=== PATIENT | male | born 1955 | race Caucasian/White ===

== ENCOUNTER 2022-11-18 14:00 | Observation (INO) ==
[2022-11-18] MEDS ORDERED: MoRPHine SULFATE 4 MG/ML 1 ML CARP\\VIAL IV STA (16:08)
[2022-11-18] MEDS ORDERED: SODIUM CHLORIDE 0.9% 1000ML 500 ML IV ONE (16:08)
--- NOTE | 2022-11-18 16:11 | Emergency Department Note ---
Impression & Plan Acute right flank pain ED Provider Note HISTORY OF PRESENT ILLNESS: Patient is a 67-year-old male presenting with right lower quadrant abdominal pain. Patient reports that he has been having progressively worsening pain over the last 4 days. He was evaluated 4 days ago after significant back pain and cough. He had a grossly unremarkable work-up at that time he reports that today he was getting in to a vehicle when he experienced sharp shooting pain in his right lower abdomen and back. Denies any numbness or tingling down his legs. Denies any saddle anesthesia. Denies any bowel or bladder incontinence. Denies any actual direct injury to the back. Locates the pain to the right flank and right lower quadrant. Denies any dysuria or hematuria. Denies any recent feve rs. He reports nausea secondary to the pain. Had 1 episode of vomiting prior to EMS arrival. On arrival to the ER, the patient is still complaining of significant pain in his right lower quadrant ROS: as above PHYSICAL EXAM: Constitutional: Patient appears in no acute distress. HENT: Head: Normocephalic and atraumatic. Eyes: EOMI, PERRL Mouth/Throat: Mucous membranes moist. Neck: Trachea midline. Neck supple. Cardiovascular: RRR, No murmurs, rubs or gallops. Intact distal pulses. Pulmonary/Chest: No respiratory distress. Breath sounds clear and equal bilaterally. No wheezes or rales. Abdominal: BS +. Abdomen soft, no rebound or guarding. RLQ TTP. Musculoskeletal: No edema, tenderness or deformity noted. Skin: Warm and dry. No rash, erythema, pallor or cyanosis Psychiatric: Appropriate mood and affect for situation. Neurological: Alert and keenly responsive. CN II-XII grossly intact, moving all extremities equally and fully. MDM: - Vitals signs showed hypertension. - History obtained via patient. Patient presents with right lower quadrant abdominal pain and right flank pain. Patient reports progressively worsening pain over the last 4 days. He states that his pain has become significantly worse today and he developed sharp shooting pain in his right lower abdomen and back. Denies any numbness or tingling down his legs. Denies any bowel or bladder incontinence. Denies any saddle anesthesia. He had 1 episode of vomiting earlier today. Denies any fevers. - Chronic conditions affecting care: HTN; HLD; prostate cancer - Differential diagnoses include, but are not limited to: Appendicitis; ureteral stone; aortic dissection; UTI; musculoskeletal pain - Order placed for continuous cardiac monitoring. At this time, monitor showed rate of 62 bpm with normal sinus rhythm, per my interpretation. - External medical records reviewed. ED note from 4 days ago was reviewed. - Laboratory workup interpreted by myself showed normal WBC; stable electrolytes - UA negative for infection. - Given patient's uncontrollable pain on arrival to the ER, CT abdomen pelvis with IV contrast was obtained. CT was unremarkable for any acute pathology - Patient given 1L NS and 4 mg IV morphine in ER. On reassessment, he reports his pain is still present, but slightly improved. - Discussed results with the patient. He is likely having muscle spasms. Recom mended alternating Tylenol and ibuprofen utilizing [id number] lidocaine patches and heating pad for topical relief of symptoms. Instructed on return precautions - Patient tolerated oral intake in the emergency department without vomiting and ambulated without any gait instability prior to discharge - Patient remained stable throughout the visit. Results were discussed with the patient and patient's family. They were given the opportunity to ask questions. Had lengthy discussion with patient about supportive care return precautions. No new prescriptions. No changes to medications. Patient to follow up with primary care physician for further evaluation and management. All questions answered. Patient agreeable plan. ASSESSMENT AND PLAN: Diagnosis: Right flank pain; right back pain Plan: Discharge Past Med/Surg History Medical History (Updated 11/18/22 @ 19:56 by Hermelinda Mace MD) Arthropathy of lumbar facet joint Degenerative disc disease, cervical Depression with anxiety Dyslipidemia Gastroesophageal reflux Hypertension Obstructive sleep apnea has a Cpap but doesn't use it Prostate cancer Surgical History (Updated 09/07/19 @ 10:15 by Melvi Tanner, JUSTA) History of colonoscopy every 3 years since his colon cancer last one was Feb 2019 per patient History of laparoscopic cholecystectomy 1974 History of laparotomy 2008-Coectomy by Tami for residual polyp but final path was negative wiht endoscopic polypectomy Family History (Updated 09/07/19 @ 09:49 by Melvi Tanner, RN) Mother , age 91 Heart disease Father , age 78 Heart disease Son No problems noted. Daughter No problems noted. Daughter Depression Social History (Updated 09/07/19 @ 09:53 by Melvi Tanner, RN) Smoking Status: Never smoker packs per day: 1; Cigarettes Per Day: usually just a pack every few day, poor historian cant remember; Second Hand Exposure: Yes; Do You Dip or Chew Tobacco: No; Hx Alcohol Use: No Hx Substance Use: No Preferred Language: Estonian Beliefs That Will Affect Care: None marital status: Current Living Situation: Family current occupational status: retired Feels Safe at Home: Yes caffeine: No Allergies Allergies Allergy/AdvReac Type Severity Reaction Status Date / Time propoxyphene AdvReac Intermediate NAUSEA AND Verified 11/15/22 16:19 VOMITING Home Meds Home Medications Medication Instructions Recorded Confirmed lisinopril 10 mg tablet 10 mg PO QAM 01/01/19 11/18/22 omega 3 350 mg-dha 235 mg-epa 90 1 cap PO HS 01/01/19 11/18/22 mg-fish oil 597 mg capsule,delay rel ([place]-3) sertraline 100 mg tablet 150 mg PO DAILY 01/01/19 11/18/22 simvastatin 20 mg tablet 20 mg PO HS 01/01/19 11/18/22 omeprazole 20 mg capsule,delayed 20 mg PO DAILY 09/07/20 11/18/22 release aspirin 81 mg chewable tablet 81 mg PO HS 11/15/22 11/18/22 Previous Rx's Medication Instructions Recorded azithromycin 250 mg tablet 250 mg PO DAILY 4 days #4 tabs 11/15/22 benzonatate 100 mg capsule 100 mg PO TID PRN cough #15 caps 11/15/22 oxycodone 5 mg tablet 5 mg PO Q8H PRN pain (scale score 11/15/22 7-10) #9 tabs Results & Data (ED) Vital Signs Vital Signs - 24 hr 11/18/22 15:50 11/18/22 14:14 11/18/22 16:22 Temperature 36.7 C Temperature Source Oral Pulse Rate 54 L 56 L Pulse Rate [Finger] 59 L Pulse Rhythm [Finger] Regular Pulse Strength [Finger] Respiratory Rate 20 20 20 Respiratory Effort / Characteristics Non-Labored Spontaneous Non-Labored Spontaneous Respiratory Depth Normal Normal Respiratory Pattern Regular Regular Blood Pressure 128/66 Blood Pressure [Right Arm] 148/87 H Blood Pressure Mean 86 Blood Pressure Mean [Right Arm] 107 Blood Pressure Position Semi-fowlers Blood Pressure Position [Right Arm] Semi-fowlers Pulse Oximetry 97 94 96 Oxygen Delivery Method Room Air Room Air Room Air Sepsis Recent Fever Within 48 Hours No Sepsis New/Unexplained Change in Mental Status N/A Sepsis Action Taken by Nursing No Action Required 11/18/22 16:23 11/18/22 19:44 Temperature Temperature Source Pulse Rate 55 L Pulse Rate [Finger] 62 Pulse Rhythm [Finger] Regular Pulse Strength [Finger] Normal Respiratory Rate 19 Respiratory Effort / Characteristics Non-Labored Spontaneous Respiratory Depth Normal Respiratory Pattern Regular Blood Pressure Blood Pressure [Right Arm] 134/74 Blood Pressure Mean Blood Pressure Mean [Right Arm] 94 Blood Pressure Position Blood Pressure Position [Right Arm] Lying Pulse Oximetry 94 Oxygen Delivery Method Room Air Sepsis Recent Fever Within 48 Hours Sepsis New/Unexplained Change in Mental Status Sepsis Action Taken by Nursing Laboratory Data 11/18/22 16:13 11/18/22 16:13 Lab Results 11/18/22 11/18/22 11/18/22 Range/Units 15:55 16:13 16:13 WBC 8.26 (4.8-10.8) K/ul RBC 5.30 (4.70-6.10) M/uL Hgb 14.8 (14.0-18.0) g/dl Hct 44.3 (42.0-52.0) % MCV 83.6 (80.0-100.0) fL MCH 27.9 (25.0-34.0) pg MCHC 33.4 (32.0-36.0) g/dL RDW Std Deviation 40.7 (36.4-46.3) fL RDW Coeff of Jean Paul 13.3 (11.5-14.5) % Plt Count 211 (130-400) K/uL MPV 10.7 (9.4-12.4) fL Immature Gran % (Auto) 0.6 % Neut % (Auto) 81.4 % Lymph % (Auto) 10.7 % [place] % (Auto) 6.7 % Eos % (Auto) 0.2 % Baso % (Auto) 0.4 % Neut # (Auto) 6.73 H (1.40-6.50) K/uL Lymph # (Auto) 0.88 L (1.2-3.4) K/uL [place] # (Auto) 0.55 (0.11-0.59) K/uL Eos # (Auto) 0.02 (0-0.50) K/uL Baso # (Auto) 0.03 (0-0.2) K/uL Immature Gran # (Auto) 0.05 (0.01-0.20) K/uL Sodium 137 (136-145) mmol/L Potassium 3.8 (3.5-5.1) mmol/L Chloride 104 (98-107) mmol/L Carbon Dioxide 25 (21-32) mmol/L Anion Gap 8 (3-11) BUN 21 (6-23) mg/dl Creatinine 0.99 (0.6-1.4) mg/dl Est Cr Clr Drug Dosing 68.0 ml/min Est GFR ( Amer) 89.7 ml/min Est GFR (Non-Af Amer) 77.4 ml/min BUN/Creatinine Ratio 21.2 H (10-20) Glucose 130 H (70-99(Fasting)) mg/dl Calcium 9.6 (8.6-10.3) mg/dl Total Bilirubin 0.7 (0.2-1.0) mg/dl AST 14 (13-39) U/L ALT 10 (7-52) U/L Alkaline Phosphatase 91 (34-104) U/L Total Protein 7.3 (6.0-8.3) gm/dl Albumin 4.2 (3.4-5.0) gm/dl Globulin 3.1 (2.5-4.0) gm/dl Albumin/Globulin Ratio 1.4 (0.9-2) Urine Color Yellow Urine Appearance Clear (Clear) Urine pH 5.0 (4.5-7.5) Ur Specific [place] 1.023 (1.000-1.030) Urine Protein Negative (Negative) Urine Glucose (UA) Negative (Negative) Urine Ketones 1+ H (Negative) Urine Blood Negative (Negative) Urine Nitrite Negative (Negative) Urine Bilirubin Negative (Negative) Urine Urobilinogen Negative (Negative) Ur Leukocyte Esterase Negative (Negative) Administered Medications Discontinued Medications Sodium Chloride (Nss 1000ml) 500 mls @ 999 mls/hr IV .Q31M ONE Stop: 11/18/22 16:38 Last Infusion: 11/18/22 16:53 Dose: 0 mls/hr Documented By: Admin: 11/18/22 16:19 Dose: 999 mls/hr Documented By: AB Ioversol (Optiray 320 100ml) 88 ml IV ONCE ONE Stop: 11/18/22 17:02 Last Admin: 11/18/22 17:02 Dose: 88 ml Documented By: BERNADINE Morphine Sulfate (Morphine Sulfate 4 Mg/Ml 1 Ml Carp\Vial) 4 mg IV NOW STA Stop: 11/18/22 16:09 Last Admin: 11/18/22 16:18 Dose: 4 mg Documented By: AB Imaging Data Radiologist's Impression: Abdomen/Pelvis CT 11/18/22 16:12 CT OF THE ABDOMEN AND PELVIS WITH CONTRAST CLINICAL HISTORY: Right lower quadrant abdominal pain. COMPARISON STUDY: CT of the abdomen and pelvis November 15, 2022. TECHNIQUE: Following IV administration of 88 mL of Optiray, axial images of the abdomen and pelvis were obtained from the lung bases to the proximal femurs. Images were reviewed in the axial, sagittal, and coronal planes. IV contrast was administered without complication. Automated exposure control was utilized for the study. A dose lowering technique was utilized adhering to the principles of ALARA. CT DOSE: 1010.58 mGy.cm FINDINGS: No pneumatosis, free air or portal venous gas is present. There is no biliary ductal dilatation status post cholecystectomy. Liver, spleen, adrenal glands, kidneys and pancreas are unremarkable. There are numerous subcentimeter renal lesions which are too small to characterize. No hydronephrosis is present. The appendix is normal. There is no evidence for a bowel obstruction. The caliber and wall thickness of small and large bowel are normal. Mild stranding within the pelvis, adjacent to the prostate and seminal vesicles is unchanged. No fluid collection is present. The no lymphadenopathy. No suspicious osseous lesions are present. No urinary calculi. IMPRESSION: 1. No acute process within the abdomen or pelvis. 2. Normal appendix. No bowel obstruction. No bowel wall thickening. ACT 112: Negative or not required by law. Electronically signed by: Nickolas Mcgee M.D. 11/18/2022 5:20 PM Discharge Plan Visit Data Chief Complaint: Back Injury/Pain ED Provider: Hermelinda Mace Discharge Problem: Acute right flank pain Patient Disposition: Home - Self-Care Discharge Instructions [place]/Other Patient Handouts: ED [facility] Back Pain Activity Restrictions/Additional Instructions: Your laboratory and imaging work-up was negative for any acute pathology. Recommend that you alternate Tylenol and ibuprofen and utilize lidocaine patches and heating pads for topical relief of symptoms. Please follow-up closely with your primary care provider. Return to the emergency department if you develop a fever, worsening pain, inability to tolerate oral intake, numbness or tingling down your legs, or any new or worsening symptoms Forms Stand Alone Forms: My [facility], Virtual Emergency Department, Important Visit Information Prescriptions Prescriptions: No Action omeprazole 20 mg capsule,delayed release(DR/EC) 20 mg PO DAILY sertraline 100 mg tablet 150 mg PO DAILY simvastatin 20 mg tablet 20 mg PO HS lisinopril 10 mg tablet 10 mg PO QAM [place]-3 350 mg-235 mg- 90 mg-597 mg Capsule,Delayed Release(Dr/Ec) 1 cap PO HS aspirin 81 mg Tablet,Chewable 81 mg PO HS azithromycin 250 mg tablet 250 mg PO DAILY 4 Days Qty: 4 0RF benzonatate 100 mg capsule 100 mg PO TID PRN (Reason: cough) Qty: 15 0RF oxycodone 5 mg tablet 5 mg PO Q8H PRN (Reason: pain (scale score 7-10)) Qty: 9 0RF Rx Instructions: May cause sedation/drowsiness Referrals Referrals: Darrick Velarde MD [Primary Care Provider] -
[2022-11-18 16:25] LABS: Basophils # (auto) 0.03 K/uL (0-0.2); Basophils % (auto) 0.4 %; Eosinophils # (auto) 0.02 K/uL (0-0.50); Eosinophils % (auto) 0.2 %; Hematocrit (blood only) 44.3 % (42.0-52.0); Hemoglobin 14.8 g/dl (14.0-18.0); Immature Granulocytes # (auto) 0.05 K/uL (0.01-0.20); Immature Granulocytes % (auto) 0.6 %; Lymphocytes # (auto) 0.88 K/uL (1.2-3.4); Lymphocytes % (auto) 10.7 %; Mean Corpuscular Hemoglobin 27.9 pg (25.0-34.0); Mean Corpuscular Hgb Conc 33.4 g/dL (32.0-36.0); Mean Corpuscular Volume 83.6 fL (80.0-100.0); Mean Platelet Volume 10.7 fL (9.4-12.4); Monocytes # (auto) 0.55 K/uL (0.11-0.59); Monocytes % (auto) 6.7 %; Neutrophils # (auto) 6.73 K/uL (1.40-6.50); Neutrophils % (auto) 81.4 %; Platelet Count 211 K/uL (130-400); RDW Coefficient of Variation 13.3 % (11.5-14.5); RDW Standard Deviation 40.7 fL (36.4-46.3); White Blood Count 8.26 K/ul (4.8-10.8)
[2022-11-18 16:46] LABS: Albumin Globulin Ratio 1.4 (0.9-2); Albumin Level 4.2 gm/dl (3.4-5.0); BUN Creatinine Ratio 21.2 (10-20); Bilirubin,Total 0.7 mg/dl (0.2-1.0); Calcium 9.6 mg/dl (8.6-10.3); Est GFR (African American) 89.7 ml/min; Est GFR (Non-African American) 77.4 ml/min; Globulin 3.1 gm/dl (2.5-4.0); Potassium 3.8 mmol/L (3.5-5.1); Total Protein 7.3 gm/dl (6.0-8.3)
[2022-11-18] MEDS ORDERED: OPTIRAY 320 100ml IV ONE (17:01)
[2022-11-18 17:12] LABS: Appearance Urine Clear (Clear); Bilirubin Urine Negative (Negative); Blood Urine Negative (Negative); Color Urine Yellow; Glucose Urine UA Negative (Negative); Ketones Urine 1+ (Negative); Leukocyte Esterase Urine Negative (Negative); Nitrite Urine Negative (Negative); Protein Urine Negative (Negative); Specific Gravity Urine 1.023 (1.000-1.030); Urobilinogen Urine Negative (Negative)
--- NOTE | 2022-11-18 17:22 | CT Scan Report ---
CT OF THE ABDOMEN AND PELVIS WITH CONTRAST CLINICAL HISTORY: Right lower quadrant abdominal pain. COMPARISON STUDY: CT of the abdomen and pelvis November 15, 2022. TECHNIQUE: Following IV administration of 88 mL of Optiray, axial images of the abdomen and pelvis we re obtained from the lung bases to the proximal femurs. Images were reviewed in the axial, sagittal, and coronal planes. IV contrast was administered without complication. Automated exposure control wa s utilized for the study. A dose lowering technique was utilized adhering to the principles of ALARA . CT DOSE: 1010.58 mGy.cm FINDINGS: No pneumatosis, free air or portal venous gas is present. There is no biliary ductal dilata tion status post cholecystectomy. Liver, spleen, adrenal glands, kidneys and pancreas are unremarkabl e. There are numerous subcentimeter renal lesions which are too small to characterize. No hydronephro sis is present. The appendix is normal. There is no evidence for a bowel obstruction. The caliber and wall thickness of small and large bowel are normal. Mild stranding within the pelvis, adjacent to th e prostate and seminal vesicles is unchanged. No fluid collection is present. The no lymphadenopathy. No suspicious osseous lesions are present. No urinary calculi. IMPRESSION: 1. No acute process within the abdomen or pelvis. 2. Normal appendix. No bowel obstruction. No bowel wall thickening. ACT 112: Negative or not required by law. Electronically signed by: Nickolas Mcgee M.D. 11/18/2022 5:20 PM
[2022-11-18] MEDS ORDERED: KETOROLAC 30 MG/ML VIAL IV ONE (20:14)
--- NOTE | 2022-11-19 02:10 | History and Physical Report ---
DATE OF ADMISSION: 11/19/2022. CHIEF COMPLAINT: Severe right-sided back pain. HISTORY OF PRESENT ILLNESS: A 67-year-old male with past medical history significant for hyperlipidemia, sleep apnea, hypertension, bifascicular block, GERD, history of prostate cancer, degenerative disk disease, depression with anxiety, history of carcinoma in situ of colon. Presents with severe right back and flank pain. The patient was here on 11/15/2022 with coughing and right back pain. At that time, workup was negative, was discharged on possible questionable bronchitis with azithromycin. On that day, on 11/15/2022, imaging, CT abdomen and pelvis was done without contrast to look for any kidney stone, it was unremarkable, but the patient states that his symptoms are not getting better. That is the reason he came here .Cough is little better and pain is shooting down and looks like he denied any saddle anesthesia, bowel or bladder incontinence. Locates the pain to the right flank and the hip region. Could not get up because of excruciating pain. That is the reason we were called for admission. Currently, resting comfortably and hemodynamically stable and lying down, his pain is okay. Denies any chest pain, no shortness of breath. Vera nausea because of pain. Denies any fevers. Cough is getting better, no shortness of breath, no headache, no blurred visions, no earache. Has some sore throat, but that got improved. Eating okay and no abdominal pain. Normal bowel and bladder movements. ALLERGIES: PROPOXYPHENE. PAST MEDICAL HISTORY: As mentioned above. PAST SURGICAL HISTORY: Biopsy of prostate, colonoscopy, flexible sigmoidoscopy, laparoscopic cholecystectomy, partial removal of colon. MEDICATIONS: The patient is on aspirin 81 mg p.o. at bedtime, Zithromax 250 mg p.o. daily, a couple more days left, Tessalon perle 100 mg p.o. t.i.d. p.r.n., lisinopril 10 mg p.o. a.m., fish oil 1 capsule daily, omeprazole 20 mg p.o. daily, oxycodone 5 mg p.o. q. 8 hours p.r.n., sertraline 150 mg p.o. daily, simvastatin 20 mg p.o. at bedtime. FAMILY HISTORY: Significant for father has [place], mother has hypertension and depression. SOCIAL HISTORY: Quit smoking in 1990, smoked half pack a day for 33 years. No alcohol, no drug use. REVIEW OF SYSTEMS: As per HPI. Rest of the review of systems is negative. PHYSICAL EXAMINATION: GENERAL: The patient is obese, not in acute distress. VITAL SIGNS: Temperature 36.7, pulse 63, respiratory rate 16, blood pressure 121/72, oxygen 94% on room air. HEENT: Pupils equal, round and reactive to light. Oral mucosa moist. NECK: No JVD, no neck masses. CARDIOVASCULAR: S1 and S2 heard. Regular rate and rhythm. No murmur, no gallop. RESPIRATORY SYSTEM: Normal AP diameter. No accessory muscle use. No wheezing or crackles. ABDOMEN: Soft, bowel sounds present, nontender, no distention. CENTRAL NERVOUS SYSTEM: Alert and oriented. Speech is clear. No facial droop. Obeys commands. MUSCULOSKELETAL: Tenderness in the right flank and hip region, the right posterior lower back and hip region. EXTREMITIES: No edema or erythema. LABORATORY DATA: WBC 8.2, hemoglobin 14.8, hematocrit 44.3, platelets 211. Sodium 137, potassium 3.8, chloride 104, bicarbonate 25, BUN 21, creatinine 0.9, serum glucose 130, calcium 9.6, total bilirubin 0.7, AST 14, ALT 10, alkaline phosphatase 91. Urinalysis negative. SARS-CoV-2 rapid test negative. IMAGING DATA: CT of abdomen and pelvis with contrast shows no acute process in the abdomen and pelvis, normal appendix, no bowel obstruction, no bowel wall thickening. ASSESSMENT AND PLAN: This is a 67-year-old male who presents with severe right flank pain. 1. Severe right flank and back pain: Tenderness on palpation of the right posterior hip region. Because of the pain, he is not able to get up and walk. He has recently had cough and bronchitis, which triggered this pain and it is not getting better. Will treat with pain control. Will give a dose of steroid. PT, OT. If not getting better, will consult pain management. 2. History of sleep apnea: CPAP at bedtime. 3. History of hypertension: Continue lisinopril. 4. Bronchitis: Will finish the course of azithromycin. 5. Hyperlipidemia: On statin. 6. Depression with anxiety: On Zoloft. 7. Gastroesophageal reflux disease: On omeprazole. 8. History of cancer determined by prostate biopsy, but seems the patient is not on any treatment, needs followup. 9. Deep venous thrombosis prophylaxis: Lovenox. DISPOSITION: Observe in medical floor. PT/OT prior to discharge. Social service to help with discharge planning. Job ID: [id number] [email or web address]
[2022-11-19] MEDS ORDERED: oxyCODONE HCL IR 5 MG TAB (IMMEDIATE RELEASE) PO PRN (02:36)
[2022-11-19] MEDS ORDERED: HYDROmorphone INJ 0.5 MG/0.5 ML SYR IV PRN (02:36)
[2022-11-19] MEDS ORDERED: DEXAMETHASONE SOD INJ 4 MG/ML VIAL IV STA (02:36)
[2022-11-19] MEDS ORDERED: BENZONATATE 100 MG CAPSULE PO PRN (02:36)
[2022-11-19] MEDS ORDERED: ACETAMINOPHEN 325 MG TAB PO PRN (02:36)
[2022-11-19 07:13] LABS: Basophils # (auto) 0.02 K/uL (0-0.2); Basophils % (auto) 0.3 %; Eosinophils # (auto) 0.02 K/uL (0-0.50); Eosinophils % (auto) 0.3 %; Hematocrit (blood only) 43.3 % (42.0-52.0); Hemoglobin 14.3 g/dl (14.0-18.0); Immature Granulocytes # (auto) 0.04 K/uL (0.01-0.20); Immature Granulocytes % (auto) 0.6 %; Lymphocytes # (auto) 0.63 K/uL (1.2-3.4); Lymphocytes % (auto) 9.6 %; Mean Corpuscular Hemoglobin 27.8 pg (25.0-34.0); Mean Corpuscular Volume 84.2 fL (80.0-100.0); Mean Platelet Volume 10.3 fL (9.4-12.4); Monocytes # (auto) 0.15 K/uL (0.11-0.59); Monocytes % (auto) 2.3 %; Neutrophils # (auto) 5.72 K/uL (1.40-6.50); Neutrophils % (auto) 86.9 %; Platelet Count 199 K/uL (130-400); RDW Coefficient of Variation 13.5 % (11.5-14.5); RDW Standard Deviation 41.8 fL (36.4-46.3); Red Blood Count 5.14 M/uL (4.70-6.10); White Blood Count 6.58 K/ul (4.8-10.8)
[2022-11-19 07:48] LABS: BUN Creatinine Ratio 26.1 (10-20); Calcium 9.2 mg/dl (8.6-10.3); Creatinine Clr Calc Pharmacy 73.2 ml/min; Est GFR (Non-African American) 84.6 ml/min; Magnesium 2.1 mg/dl (1.7-2.4); Potassium 4.4 mmol/L (3.5-5.1)
--- NOTE | 2022-11-19 10:52 | Magnetic Resonance Report ---
MR thoracic spine wo con CLINICAL HISTORY: persistent R flank pain TECHNIQUE: Multiplanar sequences through the thoracic spine were obtained, without intravenous contra st. Comparison: None available at the time of this dictation. FINDINGS: The alignment is anatomical. Degenerative changes are noted in the discs and vertebral bodies. The spinal canal and neural foramina are patent. The spinal ligaments are intact, without evidence of disruption or abnormal signal intensity. The spi nal cord is normal in signal intensity and there is no evidence of cord contusion. There is no eviden ce of an extradural, intradural, extramedullary or intramedullary lesion. Visualized soft tissues are normal. IMPRESSION: No evidence of cord compression, significant neuroforaminal narrowing or ligamentous injury. ACT 112: Negative or not required by law. Electronically signed by: Nikos Shanks M.D. 11/19/2022 10:50 AM
--- NOTE | 2022-11-19 11:06 | Magnetic Resonance Report ---
LUMBAR SPINE MRI HISTORY: persistent R lower back pain TECHNIQUE: Multiplanar multisequence MRI of the lumbar spine was performed without the use of contras t. COMPARISON: Abdomen and pelvis CT 11/18/2022. FINDINGS: For the purpose of the report the L5-S1 disc space will be located on axial image 25 of 27. There is 3 mm of anterolisthesis of L4 on L5. No acute fractures identified within the lumbar spine. The visualized sacrum is intact. Slightly heterogeneous marrow signal which is likely age-related. No suspicious osseous lesions identified. Mild right-sided paravertebral edema at the T12-L1 level whic h is likely due to the adjacent large osteophyte. Multiple additional osteophytes seen within the lum bar spine. Moderate to severe facet degenerative changes throughout the lumbar spine most pronounced at the L3-L4 and L4-5 levels. Moderate disc space narrowing at L4-L5. There is mild disc space narrow ing throughout the remaining lower thoracic and lumbar spine. The conus terminates at the L1 level. L1-L2: Broad-based posterior disc bulge with a small focal central disc protrusion measuring 2 mm. Th ere is also ligamentum flavum and facet hypertrophy resulting in mild central canal and mild bilatera l neural foraminal narrowing. L2-L3: Broad-based posterior disc bulge with significant ligamentum flavum and facet hypertrophy resu lting in moderate to severe central canal narrowing with the AP diameter measuring 7 mm. There is mil d to moderate bilateral neural foraminal narrowing. L3-L4: Broad-based posterior disc bulge with severe ligamentum and facet hypertrophy resulting in sev ere central canal narrowing with the AP diameter measuring 5.3 mm. There is also severe right and mod erate to severe left neural foraminal narrowing due to the disc bulge and facet hypertrophy. L4-L5: Broad-based posterior disc bulge with severe ligamentum and facet hypertrophy resulting in sev ere central canal narrowing with the AP diameter of 3 mm. There is also moderate to severe left and s evere right neural foraminal narrowing. L5-S1: Broad-based posterior disc bulge with a small central focal disc protrusion. This abuts the tr ansiting bilateral S1 nerve roots. However, no significant central canal narrowing. There is severe b ilateral neural foraminal narrowing with impingement of the exiting bilateral L5 nerve roots. IMPRESSION: 1. Advanced multilevel degenerative changes as described above most pronounced at the L3-L4 and L4-L5 levels demonstrating severe central canal narrowing. 2. No fractures identified. 3. Grade 1 anterolisthesis of L4 and L5. ACT 112: Negative or not required by law. Electronically signed by: Mark Haddad M.D. 11/19/2022 11:04 AM
--- NOTE | 2022-11-19 11:19 | Magnetic Resonance Report ---
MRI OF THE RIGHT HIP WITHOUT CONTRAST CLINICAL HISTORY: Persistent right hip pain. COMPARISON STUDY: CT of the abdomen and pelvis November 18, 2022. TECHNIQUE: Utilizing a 1.5 Puja magnet and dedicated coil, multiplanar, multiecho imaging of the rig ht hip was performed without intra-articular or intravenous contrast. FINDINGS: No marrow edema or marrow replacement is identified within the pelvis or hips. No right hip joint effusion is present. There is no evidence for avascular necrosis of the femoral heads. No sign ificant cartilage abnormality within the right hip is present. No labral tear is identified on nonart hrogram exam. There are moderate degenerative changes at the symphysis pubis. No suspicious osseous l esions are present. There is no pelvic lymphadenopathy. Note is made of mild increased signal within the distal right gluteus minimus and medius. There is also mild increased signal within the right ham string origin. There is subtle increased T2 signal within the pelvic floor musculature. No fluid ayla ection is present. IMPRESSION: 1. No fractures within the pelvis or hips. No suspicious marrow replacement. No evidence for avascula r necrosis of the femoral heads. 2. No significant internal derangement of the right hip on nonarthrogram exam. 3. Mild increased signal within the distal right gluteus medius and minimus and the proximal right ross mstring. The findings suggest tendinosis with mild partial-thickness tears. 4. Increased T2 signal within the pelvic floor musculature. This is likely treatment related. ACT 112: Negative or not required by law. Electronically signed by: Nickolas Mcgee M.D. 11/19/2022 11:17 AM
[2022-11-19] MEDS: ENOXAPARIN INJ 40 MG/0.4 ML SYR SQ SCH (11:52)
[2022-11-19] MEDS: PANTOprazole 40 MG TAB PO SCH (11:53)
[2022-11-19] MEDS: SERTRALINE HCL 50 MG TABLET PO SCH (11:53)
[2022-11-19] MEDS: AZITHROMYCIN 250 MG TAB PO SCH (11:53)
[2022-11-19] MEDS: lisinopril 10 MG TAB PO SCH (11:53)
--- NOTE | 2022-11-19 17:15 | Hospitalist Progress Note ---
Date of Service November 19, 2022 Assessment & Plan (1) Intractable back pain: Plan: ASSESSMENT AND PLAN: This is a 67-year-old male who presents with severe right flank pain. 1. Severe right flank and back pain: Thoracic MRI: Unrevealing Lumbar spine MRI: Severe spinal stenosis Right hip MRI:Mild increased signal within the distal right gluteus medius and minimus and the proximal right hamstring. The findings suggest tendinosis with mild partial-thickness tears. -- Start Zanaflex 2 mg p.o. 3 times daily, Lidoderm patch, Tylenol 1 g every 8 hours --Consult orthopedic spine, pain management --PT and OT evaluation 2. History of sleep apnea: CPAP at bedtime. 3. History of hypertension: Continue lisinopril. 4. Bronchitis: Will finish the course of azithromycin. 5. Hyperlipidemia: On statin. 6. Depression with anxiety: On Zoloft. 7. Gastroesophageal reflux disease: On omeprazole. 8. History of cancer determined by prostate biopsy, but seems the patient is not on any treatment, needs followup. 9. Deep venous thrombosis prophylaxis: Lovenox. DISPOSITION: Lives at home , PT and OT evaluation in progress Admission and Anticipated Discharge Date Admission Date: November 19, 2022 Subjective Follow-up persistent right lower back pain, etc. Seen resting in bed, not in distress States he still having right sided lower back pain Worse with movement, lifting left lower extremity Denies incontinence, weakness or numbness of the extremities No other symptoms Review of Systems Review of Systems: all noted and negative except for above Physical Exam Physical Exam: General- oriented x 3, not in distress, speaks in sentences with no effort or accessory muscle use Head- atraumatic Eyes- PERRL, EOMI, anicteric ENT- oropharynx clear Neck- supple, no JVD, no adenopathy, no thyromegaly; carotids +2/2, no bruits appreciated Lungs- clear to auscultation bilaterally, no rales/wheezes Heart- normal rate, regular rhythm; no murmur, no gallop, no rub appreciated Abdomen- normal bowel sounds, nondistended, soft, nontender, no masses or hepatosplenomegaly Extremities- no pretibial edema, no calf tenderness; peripheral pulses intact Back- (+) tenderness on the R lower back No erythema/warmth/tenderness Positive straight leg test Neuro- alert, oriented x 3; CN 2-12 grossly intact; motor 5/5 bilaterally; sensation 100% on all extremities; no other gross focal neurologic deficits Skin- warm & dry Results & Data Results & Data Vital Signs (Past 12 Hours) Vital Signs Temp Pulse Pulse Resp BP BP Pulse Ox 11/19/22 16:06 36.6 C 59 L 18 156/87 H 96 11/19/22 15:00 60 13 96 11/19/22 14:00 63 20 95 11/19/22 13:00 92 11/19/22 13:00 124/88 11/19/22 12:01 93 11/19/22 12:01 161/98 H 11/19/22 12:00 94 11/19/22 11:26 97 11/19/22 11:26 131/80 11/19/22 09:00 55 L 13 89 L 11/19/22 09:00 99/65 L 11/19/22 08:00 61 16 94 11/19/22 08:00 114/67 11/19/22 07:00 57 L 13 92 11/19/22 07:00 110/62 11/19/22 11:32 11/19/22 07:00 52 L 18 110/62 95 11/19/22 06:56 60 11/19/22 06:00 56 L 15 95/64 L 93 O2 Del Method 11/19/22 16:06 Room Air 11/19/22 15:00 11/19/22 14:00 11/19/22 13:00 11/19/22 13:00 11/19/22 12:01 11/19/22 12:01 11/19/22 12:00 11/19/22 11:26 11/19/22 11:26 11/19/22 09:00 11/19/22 09:00 11/19/22 08:00 11/19/22 08:00 11/19/22 07:00 11/19/22 07:00 11/19/22 11:32 Room Air 11/19/22 07:00 Room Air 11/19/22 06:56 11/19/22 06:00 Room Air all noted and reviewed including below
[2022-11-19] MEDS: tiZANidine HCL 4 MG TABLET PO SCH ×2 (17:58→20:21)
[2022-11-19] MEDS: ACETAMINOPHEN 500 MG TAB PO SCH (18:00)
[2022-11-19] MEDS: ASPIRIN 81 MG ECTAB PO SCH (20:20)
[2022-11-19] MEDS: SIMVASTATIN 20 MG TAB PO SCH (20:20)
[2022-11-20] MEDS: ACETAMINOPHEN 500 MG TAB PO SCH ×3 (01:31→18:04)
[2022-11-20] MEDS: PANTOprazole 40 MG TAB PO SCH (08:27)
[2022-11-20] MEDS: lisinopril 10 MG TAB PO SCH (08:27)
[2022-11-20] MEDS: AZITHROMYCIN 250 MG TAB PO SCH (08:27)
[2022-11-20] MEDS: SERTRALINE HCL 50 MG TABLET PO SCH (08:27)
[2022-11-20] MEDS: LIDOCAINE 5% 1 PATCH TD SCH (08:28)
[2022-11-20] MEDS: tiZANidine HCL 4 MG TABLET PO SCH (08:28)
--- NOTE | 2022-11-20 08:51 | Pain Management Consultation ---
Date of Consultation November 20, 2022 Assessment & Plan (1) Intractable back pain: (2) Acute right flank pain: (3) Spinal stenosis of lumbar region: (4) History of prostate cancer: Plan Patient has not been taking the PRN oxycodone or Dilaudid for the past couple of days. It seems that since he was in the ER, he has only been receiving Tylenol. Patient did seem confused about the medications as far as needing to ask for them when he is in pain. He denies any cauda equina syndrome red flag symptoms of bilateral sciatica pain and altered sensation in the legs, bowel/bladder d ysfunction, saddle anesthesia, and sexual problems. 1. Patient's symptoms do not include a radicular component, low lumbar/lumbosacral tenderness, and he has relatively good strength to the lower extremities. He actually seems to demonstrate some mild weakness on the left lower extremity compared to the right. His presentation does not seem to be consistent with what would be seen with an acute issue at the L4-5 level, especially with there being a 3 mm the diameter of the canal. However, it is certainly possible that he is experiencing significant waxing and waning pain from a muscle spasm related to the underlying nerve impingement. * With the above noted, the patient's pain is currently localized to the right flank region at the base of the ribs, which corresponds with the lower tho racic levels. This would not be consistent with expected lumbar level pain/symptoms. 2. We did discuss his options, to include a lumbar L4-5 interlaminar DEONTE, which would be performed as an outpatient at the pain clinic office. * However, this option would be pending the orthopedic spine surgeon consult, and whether any surgical intervention was recommended. * After further discussion with Dr. Joseph, and the fact that the patient's symptoms and location of pain do not correspond to a lumbar issue, we would recommend more conservative treatment and avoidance of any lumbar injection for the time being. 3. With the patient's pain pattern being inconsistent with what is seen on the MRI imaging, and him utilizing only relatively lower strength pain medications for the past couple of days, it is felt best to go the route of the most conservative path. * This would include an oral steroid taper. * Recommend 18-day methylprednisolone taper, which has been ordered. 4. Discontinue Zanaflex and start baclofen, which has also been ordered. 5. Recommend mobilization with PT/OT. 6. Upon further review of the MRI imaging, it is noted on the thoracic MRI that the patient has multiple bulging/herniated low thoracic level and thoracolumbar anterior disc osteophyte complexes of a rather large appearing size. * These appear at T9-10, T11-12, and T12-L1. * Though this can be a common appearance on a thoracic MRI, research has suggested that possibly there is a component of sympathetic chain nerve compression involvement, wherein the lesser vs. least splanchnic nerve is being compressed and causing referred type pain in the kidney area due to renal plexus involvement. 7. Differentially, the patient's symptoms may represent a thoracic discogenic pain syndrome, but less likely. 8. Plan from the pain management team would be to continue to completion the oral steroid taper, and follow-up as outpatient next week or the week after in the pain clinic for further evaluation. * In the meantime, we will have discussion on the potential for a diagnostic lesser vs. least splanchnic nerve block vs. alternative, if this ends up being necessary due to persistent severe pain. History of Present Illness Reason for Consultation: right low back/flank pain Attending Physician: Peter Ortega MD History of Present Illness Patient is a pleasant 67-year-old male that the pain management team has been consulted on for acute right sided flank and thoracic/low back pain. Patient has a history of hypertension and previous prostate cancer. He was having a severe cough and nasal drainage at that time, as well as a sore throat. It seems that the severe coughing caused him to feel a sudden sharp pulling sensation in his right mid to low back and right flank area. That pain persisted, and was worse with movements, so he contacted EMS, and they administered a dose of Toradol without any improvement. He had presented to the ER via EMS on 11/15/2022. He was noted to have some right posterior flank pain in the ER, but this was not provokable by palpation. It was, however, provoked with certain movements he made. CT of the abdomen/pelvis demonstrated no acute intra-abdominal or pelvic abnormality and was without evidence of kidney stone. There was noted to be some prostate changes, likely related to treatment interventions there. Otherwise, his work-up was relatively unremarkable at that time. Morphine did help his back pain, in addition to a lidocaine patch. It was felt he was having musculoskeletal pains from coughing, so he was prescribed a course of antitussive and antibiotic. He was also sent in a prescription of oxycodone, and the patient was discharged home. Patient returns to the ER on Friday, 11/18, with right lower quadrant abdominal pain. He was reporting pain at that time that worsened over about a period of 4 days. He was helping a friend collect and broderick some junk materials since he is retired, and he really was not lifting anything at all, nor had he been since his previous hospital discharge, but then he was getting into a vehicle and he experienced a sharp and shooting pain in his right lower abdomen and back. He continued to deny any numbness and tingling in his legs. He denied any symptoms of bowel/bladder incontinence and saddle anesthesia. He denied any direct injury to the back or flank region. Patient localizes the pain at that time to his right flank and right lower abdominal quadrant. He was having no trouble with dysuria or hematuria. He did experience some nausea secondary to the pain, which did cause him to have an episode of emesis prior to EMS bringing him to the ER that day. Work-up while in the ER on that day was also relatively benign, and CT was again unremarkable for any acute pathology. He was given IV morphine, and upon reassessment he continues to report pain still present, but slightly improved. It was felt he was having muscle spasms, and it was recommended he alternate Tylenol and ibuprofen, as well as utilize lidocaine patches and heating pad for topical relief. He was able to ambulate in the ER without any gait instability. The plan was to discharge the patient, however, upon attempting to get into a wheelchair, he was in excruciating pain and did not feel comfortable going back home. He requested admission to the hospital, and so this was carried out so that he could be observed for pain management. Since the patient was in the ER on Friday and received an IV dose of morphine, he has not had a narcotic pain medicine administrations since that time. He says that they have been giving him Tylenol, and this does seem to help with his pain. He has also been receiving Zanaflex muscle relaxer and a Lidoderm patch. He has been trying to shift around to different positions to find a spot of comfort, and he has been laying on his left side quite regularly. Thoracic, lumbar, and right hip MRIs have been performed. The thoracic spine MRI is unremarkable, and the right hip MRI demonstrates some distal right gluteus medius and minimus and proximal hamstring increased signal, likely suggesting tendinosis and mild partial-thickness tears. The lumbar spine MRI demonstrated multilevel degenerative disc disease with bulging present diffusely. There was a severe spinal stenosis present, with the worst level being L4-5, with an AP diameter of 3 mm. Pain Assessment Full Body Front + Back: 1. Allergies Allergy/AdvReac Type Severity Reaction Status Date / Time propoxyphene AdvReac Intermediate NAUSEA AND Verified 11/15/22 16:19 VOMITING Home Medications Medication Instructions Recorded Confirmed Type lisinopril 10 mg tablet 10 mg PO QAM 01/01/19 11/18/22 History omega 3 350 mg-dha 235 mg-epa 90 1 cap PO HS 01/01/19 11/18/22 History mg-fish oil 597 mg capsule,delay rel (Chappell-3) sertraline 100 mg tablet 150 mg PO DAILY 01/01/19 11/18/22 History simvastatin 20 mg tablet 20 mg PO HS 01/01/19 11/18/22 History omeprazole 20 mg capsule,delayed 20 mg PO DAILY 09/07/20 11/18/22 History release aspirin 81 mg chewable tablet 81 mg PO HS 11/15/22 11/18/22 History azithromycin 250 mg tablet 250 mg PO DAILY 4 days #4 tabs 11/15/22 11/18/22 Rx benzonatate 100 mg capsule 100 mg PO TID PRN cough #15 caps 11/15/22 11/18/22 Rx oxycodone 5 mg tablet 5 mg PO Q8H PRN pain (scale score 11/15/22 11/18/22 Rx 7-10) #9 tabs Pain History Chief Complaint Chief Complaint: severe right side and back pain Patient History Medical History Arthropathy of lumbar facet joint Degenerative disc disease, cervical Depression with anxiety Dyslipidemia Gastroesophageal reflux History of prostate cancer Hypertension Obstructive sleep apnea has a Cpap but doesn't use it Prostate cancer Spinal stenosis of lumbar region Surgical History History of colonoscopy every 3 years since his colon cancer last one was Feb 2019 per patient History of laparoscopic cholecystectomy 1975 History of laparotomy 2009-Coectomy by Tami for residual polyp but final path was negative wiht endoscopic polypectomy Family History Mother , age 91 Heart disease Father , age 78 Heart disease Son No problems noted. Daughter No problems noted. Daughter Depression Social History Smoking Status: Never smoker packs per day: 1; Cigarettes Per Day: usually just a pack every few day, poor historian cant remember; Second Hand Exposure: Yes; Do You Dip or Chew Tobacco: No; Hx Alcohol Use: No Hx Substance Use: No Preferred Language: Divehi Communication Ability: Effective Hog Ringer Required: No Beliefs That Will Affect Care: None marital status: Current Living Situation: Family Current Living Situation Comment: lives with 2 adult children current occupational status: retired Feels Safe at Home: Yes caffeine: No Assistive Devices: Cane and Walker Physical Exam Physical Exam: GENERAL: Speech and cognition is intact. Mood and affect is appropriate. Does not appear in acute distress. HEAD: Normocephalic; atraumatic. NECK: Full ROM; trachea is midline. CHEST: Regular chest respiration and excursion. EXTREMITIES: Full ROM. No TTP. Distal sensation and pulses intact bilaterally. BACK: Diminished ROM.There is no midline, SI joint, or facet joint tenderness. Pain is unchanged with flexion or extension while seated on the bedside. No lumbosacral tenderness. There is no lumbosacral paraspinal, quadratus lumborum, piriformis, or gluteal tenderness or spasm.Inspection/palpation demonstrates some loss of lumbar lordotic curvature. Positive mild tenderness to palpation over right thoracolumbar region and right flank near the border of the rib cage. Positive pain with side bending to the left while seated. NEURO: CN II-XII grossly intact with no focal deficits noted. Unable to assess gait. Awake, alert, and oriented x 3. Distal sensation of lower legs intact and equal bilaterally. Patellar Reflex R 2+L 3+ Achilles Reflex R 2+L 2+ Negative clonus bilaterally SKIN: No lesions, erythema, or rashes noted. LOWER EXTREMITIES: Negative straight leg raise bilaterally. R Hip flexion 5/5; hip extension 5/5; knee extension 5/5; knee flexion 5/5; ankle dorsiflexion 5/5; ankle plantar flexion 5/5; EHL 5/5 L Hip flexion 4/5; hip extension 5/5; knee extension 4+/5; knee flexion 5/5; ankle dorsiflexion 5/5; ankle plantar flexion 5/5; EHL 5/5 Special tests: R SI compression test: L SI compression test: Negative slump test bilateral Results (Pain Clinic) Laboratory Review Additional Comments: Labs 11/18/22 11/18/22 11/18/22 15:55 16:13 16:13 WBC 8.26 RBC 5.30 Hgb 14.8 Hct 44.3 MCV 83.6 MCH 27.9 MCHC 33.4 RDW Std Deviation 40.7 RDW Coeff of Jean Paul 13.3 Plt Count 211 MPV 10.7 Immature Gran % (Auto) 0.6 Neut % (Auto) 81.4 Lymph % (Auto) 10.7 Swain % (Auto) 6.7 Eos % (Auto) 0.2 Baso % (Auto) 0.4 Neut # (Auto) 6.73 H Lymph # (Auto) 0.88 L Swain # (Auto) 0.55 Eos # (Auto) 0.02 Baso # (Auto) 0.03 Immature Gran # (Auto) 0.05 Sodium 137 Potassium 3.8 Chloride 104 Carbon Dioxide 25 Anion Gap 8 BUN 21 Creatinine 0.99 Est Cr Clr Drug Dosing 68.0 Est GFR ( Amer) 89.7 Est GFR (Non-Af Amer) 77.4 BUN/Creatinine Ratio 21.2 H Glucose 130 H Calcium 9.6 Magnesium Total Bilirubin 0.7 AST 14 ALT 10 Alkaline Phosphatase 91 Total Protein 7.3 Albumin 4.2 Globulin 3.1 Albumin/Globulin Ratio 1.4 Urine Color Yellow Urine Appearance Clear Urine pH 5.0 Ur Specific Cumming 1.023 Urine Protein Negative Urine Glucose (UA) Negative Urine Ketones 1+ H Urine Blood Negative Urine Nitrite Negative Urine Bilirubin Negative Urine Urobilinogen Negative Ur Leukocyte Esterase Negative SARS-CoV-2, RNA, NAAT 11/18/22 11/19/22 11/19/22 21:36 07:02 07:02 WBC 6.58 RBC 5.14 Hgb 14.3 Hct 43.3 MCV 84.2 MCH 27.8 MCHC 33.0 RDW Std Deviation 41.8 RDW Coeff of Jean Paul 13.5 Plt Count 199 MPV 10.3 Immature Gran % (Auto) 0.6 Neut % (Auto) 86.9 Lymph % (Auto) 9.6 Swain % (Auto) 2.3 Eos % (Auto) 0.3 Baso % (Auto) 0.3 Neut # (Auto) 5.72 Lymph # (Auto) 0.63 L Swain # (Auto) 0.15 Eos # (Auto) 0.02 Baso # (Auto) 0.02 Immature Gran # (Auto) 0.04 Sodium 136 Potassium 4.4 Chloride 104 Carbon Dioxide 24 Anion Gap 8 BUN 24 H Creatinine 0.92 Est Cr Clr Drug Dosing 73.2 Est GFR ( Amer) 98.0 Est GFR (Non-Af Amer) 84.6 BUN/Creatinine Ratio 26.1 H Glucose 141 H Calcium 9.2 Magnesium 2.1 Total Bilirubin AST ALT Alkaline Phosphatase Total Protein Albumin Globulin Albumin/Globulin Ratio Urine Color Urine Appearance Urine pH Ur Specific Cumming Urine Protein Urine Glucose (UA) Urine Ketones Urine Blood Urine Nitrite Urine Bilirubin Urine Urobilinogen Ur Leukocyte Esterase SARS-CoV-2, RNA, NAAT NEGATIVE Diagnostic Review MRI Findings: LUMBAR SPINE MRI HISTORY: persistent R lower back pain TECHNIQUE: Multiplanar multisequence MRI of the lumbar spine was performed without the use of contrast. COMPARISON: Abdomen and pelvis CT 11/18/2022. FINDINGS: For the purpose of the report the L5-S1 disc space will be located on axial image 25 of 27. There is 3 mm of anterolisthesis of L4 on L5. No acute fractures identified within the lumbar spine. The visualized sacrum is intact. Slightly heterogeneous marrow signal which is likely age-related. No suspicious osseous lesions identified. Mild right-sided paravertebral edema at the T12-L1 level which is likely due to the adjacent large osteophyte. Multiple additional osteophytes seen within the lumbar spine. Moderate to severe facet degenerative changes throughout the lumbar spine most pronounced at the L3-L4 and L4-5 levels. Moderate disc space narrowing at L4-L5. There is mild disc space narrowing throughout the remaining lower thoracic and lumbar spine. The conus terminates at the L1 level. L1-L2: Broad-based posterior disc bulge with a small focal central disc protrusion measuring 2 mm. There is also ligamentum flavum and facet hypertrophy resulting in mild central canal and mild bilateral neural foraminal narrowing. L2-L3: Broad-based posterior disc bulge with significant ligamentum flavum and facet hypertrophy resulting in moderate to severe central canal narrowing with the AP diameter measuring 7 mm. There is mild to moderate bilateral neural foraminal narrowing. L3-L4: Broad-based posterior disc bulge with severe ligamentum and facet hypertrophy resulting in severe central canal narrowing with the AP diameter measuring 5.3 mm. There is also severe right and moderate to severe left neural foraminal narrowing due to the disc bulge and facet hypertrophy. L4-L5: Broad-based posterior disc bulge with severe ligamentum and facet hypertrophy resulting in severe central canal narrowing with the AP diameter of 3 mm. There is also moderate to severe left and severe right neural foraminal narrowing. L5-S1: Broad-based posterior disc bulge with a small central focal disc protrusion. This abuts the transiting bilateral S1 nerve roots. However, no significant central canal narrowing. There is severe bilateral neural foraminal narrowing with impingement of the exiting bilateral L5 nerve roots. IMPRESSION: 1. Advanced multilevel degenerative changes as described above most pronounced at the L3-L4 and L4-L5 levels demonstrating severe central canal narrowing. 2. No fractures identified. 3. Grade 1 anterolisthesis of L4 and L5. ACT 112: Negative or not required by law. Electronically signed by: Mark Haddad M.D. 11/19/2022 11:04 AM Dictated:11/19/22 1050 Transcribed: 11/19/22 1050 MR thoracic spine wo con CLINICAL HISTORY: persistent R flank pain TECHNIQUE: Multiplanar sequences through the thoracic spine were obtained, without intravenous contrast. Comparison: None available at the time of this dictation. FINDINGS: The alignment is anatomical. Degenerative changes are noted in the discs and vertebral bodies. The spinal canal and neural foramina are patent. The spinal ligaments are intact, without evidence of disruption or abnormal signal intensity. The spinal cord is normal in signal intensity and there is no evidence of cord contusion. There is no evidence of an extradural, intradural, extramedullary or intramedullary lesion. Visualized soft tissues are normal. IMPRESSION: No evidence of cord compression, significant neuroforaminal narrowing or ligamentous injury. ACT 112: Negative or not required by law. Electronically signed by: Nikos Shanks M.D. 11/19/2022 10:50 AM Dictated:11/19/228 Transcribed: 11/19/22 1048 MRI OF THE RIGHT HIP WITHOUT CONTRAST CLINICAL HISTORY: Persistent right hip pain. COMPARISON STUDY: CT of the abdomen and pelvis November 18, 2022. TECHNIQUE: Utilizing a 1.5 Puja magnet and dedicated coil, multiplanar, multiecho imaging of the right hip was performed without intra-articular or intravenous contrast. FINDINGS: No marrow edema or marrow replacement is identified within the pelvis or hips. No right hip joint effusion is present. There is no evidence for avascular necrosis of the femoral heads. No significant cartilage abnormality within the right hip is present. No labral tear is identified on nonarthrogram exam. There are moderate degenerative changes at the symphysis pubis. No suspicious osseous lesions are present. There is no pelvic lymphadenopathy. Note is made of mild increased signal within the distal right gluteus minimus and medius. There is also mild increased signal within the right hamstring origin. There is subtle increased T2 signal within the pelvic floor musculature. No fluid collection is present. IMPRESSION: 1. No fractures within the pelvis or hips. No suspicious marrow replacement. No evidence for avascular necrosis of the femoral heads. 2. No significant internal derangement of the right hip on nonarthrogram exam. 3. Mild increased signal within the distal right gluteus medius and minimus and the proximal right hamstring. The findings suggest tendinosis with mild partial- thickness tears. 4. Increased T2 signal within the pelvic floor musculature. This is likely treatment related. ACT 112: Negative or not required by law. Electronically signed by: Nickolas Mcgee M.D. 11/19/2022 11:17 AM Dictated:11/19/22 1102 Transcribed: 11/19/22 1109
[2022-11-20] MEDS: ENOXAPARIN INJ 40 MG/0.4 ML SYR SQ SCH (09:48)
[2022-11-20] MEDS: methylPREDNISolone 4 MG TAB PO SCH (11:30)
[2022-11-20] MEDS: BACLOFEN 10 MG TAB PO SCH ×2 (11:30→20:15)
--- NOTE | 2022-11-20 12:26 | Consultation ---
Date of Consultation November 20, 2022 Assessment & Plan (1) Spinal stenosis of lumbar region: Case has been reviewed with Dr. Cosme as well as imaging. Patient does have severe multilevel lumbar stenosis. Patient's pain presentation though is quite atypical for this. He has no radicular pain. He is neurologically intact. I Would therefore recommend pursuing conservative treatment. I do agree with physical therapy that has been initiated as well as pain management consult with possible steroid injection as an outpatient. Continue with current pain control regimen. History of Present Illness Attending Physician: Peter Ortega MD History of Present Illness Jeff is a pleasant 67-year-old gentleman who presented to the ER on 11/15 and discharged and then again on 11/18 with subsequent admission for right flank and right lower quadrant pain. Upon examination of the patient he states his symptoms started 6 days ago. No precipitating accident, trauma, fall although he states he had a coughing fit that day. It is in the right flank. He denies it radiating to the abdomen today. He denies any bilateral lower extremity pain, paresthesia, numbness, heaviness or weakness. Typically at home he ambulates independently. He states that rolling over in bed, the active changing positions from a seated to a standing position and sometimes walking exacerbate his pain. He denies saddle paresthesia. Denies bowel or bladder dysfunction. Allergies Allergy/AdvReac Type Severity Reaction Status Date / Time propoxyphene AdvReac Intermediate NAUSEA AND Verified 11/15/22 16:19 VOMITING Home Medications Medication Instructions Recorded Confirmed Type lisinopril 10 mg tablet 10 mg PO QAM 01/01/19 11/18/22 History omega 3 350 mg-dha 235 mg-epa 90 1 cap PO HS 01/01/19 11/18/22 History mg-fish oil 597 mg capsule,delay rel (Glen-3) sertraline 100 mg tablet 150 mg PO DAILY 01/01/19 11/18/22 History simvastatin 20 mg tablet 20 mg PO HS 01/01/19 11/18/22 History omeprazole 20 mg capsule,delayed 20 mg PO DAILY 09/07/20 11/18/22 History release aspirin 81 mg chewable tablet 81 mg PO HS 11/15/22 11/18/22 History azithromycin 250 mg tablet 250 mg PO DAILY 4 days #4 tabs 11/15/22 11/18/22 Rx benzonatate 100 mg capsule 100 mg PO TID PRN cough #15 caps 11/15/22 11/18/22 Rx oxycodone 5 mg tablet 5 mg PO Q8H PRN pain (scale score 11/15/22 11/18/22 Rx 7-10) #9 tabs Patient History Medical History (Updated 11/21/22 @ 09:02 by Sebas Velarde PA-C) Arthropathy of lumbar facet joint Degenerative disc disease, cervical Depression with anxiety Dyslipidemia Gastroesophageal reflux History of prostate cancer Hypertension Obstructive sleep apnea has a Cpap but doesn't use it Prostate cancer Spinal stenosis of lumbar region Sympathetic pain lesser/least splanchnic nerve distribution, right Surgical History History of colonoscopy every 3 years since his colon cancer last one was Feb 2019 per patient History of laparoscopic cholecystectomy 1974 History of laparotomy 2008-Coectomy by Tami for residual polyp but final path was negative wiht endoscopic polypectomy Family History Mother , age 91 Heart disease Father , age 78 Heart disease Son No problems noted. Daughter No problems noted. Daughter Depression Social History Smoking Status: Never smoker packs per day: 1; Cigarettes Per Day: usually just a pack every few day, poor historian cant remember; Second Hand Exposure: Yes; Do You Dip or Chew Tobacco: No; Hx Alcohol Use: No Hx Substance Use: No Preferred Language: [place] Citizen Communication Ability: Effective Retail Coverage Merchandiser Required: No Beliefs That Will Affect Care: None marital status: Current Living Situation: Family Current Living Situation Comment: lives with 2 adult children current occupational status: retired Feels Safe at Home: Yes caffeine: No Assistive Devices: Cane and Walker Review of Systems Review of Systems: All systems reviewed & are unremarkable except as noted in HPI & below Physical Exam Physical Exam: Alert and oriented x3 Cooperative with exam He is able to roll over unassisted but he is quite painful. Lidoderm patches over his right flank. Nontender to patient of the midline thoracic and lumbar region I am unable to reproduce pain over the right flank to palpation Negative logrolling bilateral lower extremities Motor testing is 5 5 bilateral EHL, dorsiflexion, plantarflexion, quad sets, hamstrings, hip flexors, hip abductor's and hip adductor's Constitutional: WD/WN, vitals as above Eyes: normal visual vieira by confrontation ENMT: external ear and nose normal, oropharynx normal Neck: normal visual inspection Respiratory: normal respiratory effort Cardiovascular: Extremities: normal capillary refill Gastrointestinal (Abdomen): Inspection/Auscultation: abdomen normal to inspection Musculoskeletal: Spine: + pain with thoraco-lumbar ROM Skin: no rashes, warm and dry Neurologic: normal touch/pain/proprioception and moves all extremities Psychiatric: A+Ox3, euthymic affect Results & Data Vital Signs (Past 12 Hours) Vital Signs Temp Pulse Resp BP Pulse Ox O2 Del Method 11/20/22 09:15 Room Air 11/20/22 08:23 67 118/74 11/20/22 07:40 36.5 C 53 L 16 98/61 L 97 Room Air Diagnostic Findings [place], [place] [phone] Magnetic Resonance Report Patient:JEFF ROBERTS Admit Date:11/19/22 MR#:[id number] Address1:[address] [place] [address] Acct ID:[id number] Address2: Date:1955 [facility] Zip:[place] [address] Age:67 Location:[facility] Sex:M Room/Bed:[address] Att Phy:Malcom Arcos MD Diagnosis:BACK PAIN Clarissa Phy:Darrick Velarde MD Service Date:11/19/22 Fam Phy: Interpreting Phy:Nikos Shanks [facility] Phy:Irwin Castro MD Ordering Phy:Malcom Arcos MD cc: ~ MR thoracic spine wo con CLINICAL HISTORY: persistent R flank pain TECHNIQUE: Multiplanar sequences through the thoracic spine were obtained, without intravenous contrast. Comparison: None available at the time of this dictation. FINDINGS: The alignment is anatomical. Degenerative changes are noted in the discs and vertebral bodies. The spinal canal and neural foramina are patent. The spinal ligaments are intact, without evidence of disruption or abnormal signal intensity. The spinal cord is normal in signal intensity and there is no evidence of cord contusion. There is no evidence of an extradural, intradural, extramedullary or intramedullary lesion. Visualized soft tissues are normal. IMPRESSION: No evidence of cord compression, significant neuroforaminal narrowing or ligamentous injury. ACT 112: Negative or not required by law. Electronically signed by: Nikos Shanks M.D. 11/19/2022 10:50 AM Dictated:11/19/22 1048 Transcribed: 11/19/22 1048 [place], [place] [phone] Magnetic Resonance Report Patient:JEFF ROBERTS Sr Admit Date:11/19/22 MR#:[id number] Address1:[address] [place] [address] Acct ID:[id number] Address2: Date:1955 [facility] Zip:[place] [address] Age:67 Location:[facility] Sex:M Room/Bed:[facility] 1-4 Att Phy:Malcom Arcos MD Diagnosis:BACK PAIN Clarissa Phy:Darrick Velarde MD Service Date:11/19/22 Fam Phy: Interpreting Phy:Mark Haddad MDAdmit Phy:Irwin Castro MD Ordering Phy:Malcom Arcos MD cc: ~ LUMBAR SPINE MRI HISTORY: persistent R lower back pain TECHNIQUE: Multiplanar multisequence MRI of the lumbar spine was performed without the use of contrast. COMPARISON: Abdomen and pelvis CT 11/18/2022. FINDINGS: For the purpose of the report the L5-S1 disc space will be located on axial image 25 of 27. There is 3 mm of anterolisthesis of L4 on L5. No acute fractures identified within the lumbar spine. The visualized sacrum is intact. Slightly heterogeneous marrow signal which is likely age-related. No suspicious osseous lesions identified. Mild right-sided paravertebral edema at the T12-L1 level which is likely due to the adjacent large osteophyte. Multiple additional osteophytes seen within the lumbar spine. Moderate to severe facet degenerative changes throughout the lumbar spine most pronounced at the L3-L4 and L4-5 levels. Moderate disc space narrowing at L4-L5. There is mild disc space narrowing throughout the remaining lower thoracic and lumbar spine. The conus terminates at the L1 level. L1-L2: Broad-based posterior disc bulge with a small focal central disc protrusion measuring 2 mm. There is also ligamentum flavum and facet hypertrophy resulting in mild central canal and mild bilateral neural foraminal narrowing. L2-L3: Broad-based posterior disc bulge with significant ligamentum flavum and facet hypertrophy resulting in moderate to severe central canal narrowing with the AP diameter measuring 7 mm. There is mild to moderate bilateral neural foraminal narrowing. L3-L4: Broad-based posterior disc bulge with severe ligamentum and facet hypertrophy resulting in severe central canal narrowing with the AP diameter measuring 5.3 mm. There is also severe right and moderate to severe left neural foraminal narrowing due to the disc bulge and facet hypertrophy. L4-L5: Broad-based posterior disc bulge with severe ligamentum and facet hypertrophy resulting in severe central canal narrowing with the AP diameter of 3 mm. There is also moderate to severe left and severe right neural foraminal narrowing. L5-S1: Broad-based posterior disc bulge with a small central focal disc protrusion. This abuts the transiting bilateral S1 nerve roots. However, no significant central canal narrowing. There is severe bilateral neural foraminal narrowing with impingement of the exiting bilateral L5 nerve roots. IMPRESSION: 1. Advanced multilevel degenerative changes as described above most pronounced at the L3-L4 and L4-L5 levels demonstrating severe central canal narrowing. 2. No fractures identified. 3. Grade 1 anterolisthesis of L4 and L5. ACT 112: Negative or not required by law. Electronically signed by: Mark Haddad M.D. 11/19/2022 11:04 AM Dictated:11/19/22 1050 Transcribed: 11/19/22 1050 [place], [place] [phone] Magnetic Resonance Report Patient:JEFF ROBERTS Admit Date:11/19/22 MR#:[id number] Address1:[address] [place] [address] Acct ID:[id number] Address2: Date:1955 [facility] Zip:[place] [address] Age:67 Location:[facility] Sex:M Room/Bed:[facility] 1-4 Att Phy:Malcom Arcos MD Diagnosis:BACK PAIN Clarissa Phy:Darrick Velarde MD Service Date:11/19/22 [facility] Phy: Interpreting Phy:Nickolas Mcgee [facility] Phy:Irwin Castro MD Ordering Phy:Malcom Arcos MD cc: ~ MRI OF THE RIGHT HIP WITHOUT CONTRAST CLINICAL HISTORY: Persistent right hip pain. COMPARISON STUDY: CT of the abdomen and pelvis November 18, 2022. TECHNIQUE: Utilizing a 1.5 Puja magnet and dedicated coil, multiplanar, multiecho imaging of the right hip was performed without intra-articular or intravenous contrast. FINDINGS: No marrow edema or marrow replacement is identified within the pelvis or hips. No right hip joint effusion is present. There is no evidence for avascular necrosis of the femoral heads. No significant cartilage abnormality within the right hip is present. No labral tear is identified on nonarthrogram exam. There are moderate degenerative changes at the symphysis pubis. No suspicious osseous lesions are present. There is no pelvic lymphadenopathy. Note is made of mild increased signal within the distal right gluteus minimus and medius. There is also mild increased signal within the right hamstring origin. There is subtle increased T2 signal within the pelvic floor musculature. No fluid collection is present. IMPRESSION: 1. No fractures within the pelvis or hips. No suspicious marrow replacement. No evidence for avascular necrosis of the femoral heads. 2. No significant internal derangement of the right hip on nonarthrogram exam. 3. Mild increased signal within the distal right gluteus medius and minimus and the proximal right hamstring. The findings suggest tendinosis with mild partial-thickness tears. 4. Increased T2 signal within the pelvic floor musculature. This is likely treatment related. ACT 112: Negative or not required by law. Electronically signed by: Nickolas Mcgee M.D. 11/19/2022 11:17 AM Dictated:11/19/22 1102 Transcribed: 11/19/22 1109 [place], [place] [phone] Magnetic Resonance Report Patient:JEFF ROBERTS Sr Admit Date:11/19/22 MR#:[id number] Address1:[address] [place] [address] Acct ID:[id number] Address2: Date:1955 [facility] Zip:[place] [address] Age:67 Location:[facility] Sex:M Room/Bed:[facility] 1-4 Att Phy:Malcom Arcos MD Diagnosis:BACK PAIN Clarissa Phy:Darrick Velarde MD Service Date:11/19/22 [facility] Phy: Interpreting Phy:Nickolas Mcgee MDAdmit Phy:Irwin Castro MD Ordering Phy:Malcom Arcos MD cc: ~ MRI OF THE RIGHT HIP WITHOUT CONTRAST CLINICAL HISTORY: Persistent right hip pain. COMPARISON STUDY: CT of the abdomen and pelvis November 18, 2022. TECHNIQUE: Utilizing a 1.5 Puja magnet and dedicated coil, multiplanar, multiecho imaging of the right hip was performed without intra-articular or intr avenous contrast. FINDINGS: No marrow edema or marrow replacement is identified within the pelvis or hips. No right hip joint effusion is present. There is no evidence for avascular necrosis of the femoral heads. No significant cartilage abnormality within the right hip is present. No labral tear is identified on nonarthrogram exam. There are moderate degenerative changes at the symphysis pubis. No suspicious osseous lesions are present. There is no pelvic lymphadenopathy. Note is made of mild increased signal within the distal right gluteus minimus and medius. There is also mild increased signal within the right hamstring origin. There is subtle increased T2 signal within the pelvic floor musculature. No fluid collection is present. IMPRESSION: 1. No fractures within the pelvis or hips. No suspicious marrow replacement. No evidence for avascular necrosis of the femoral heads. 2. No significant internal derangement of the right hip on nonarthrogram exam. 3. Mild increased signal within the distal right gluteus medius and minimus and the proximal right hamstring. The findings suggest tendinosis with mild partial- thickness tears. 4. Increased T2 signal within the pelvic floor musculature. This is likely treatment related. ACT 112: Negative or not required by law. Electronically signed by: Nickolas Mcgee M.D. 11/19/2022 11:17 AM Dictated:11/19/22 1102 Transcribed: 11/19/22 1109
--- NOTE | 2022-11-20 16:01 | Hospitalist Progress Note ---
Date of Service November 20, 2022 Assessment & Plan (1) Intractable back pain: Plan: This is a 67-year-old male who presents with severe right flank pain. 1. Severe right flank and back pain: Thoracic MRI: Unrevealing Lumbar spine MRI: Severe spinal stenosis Right hip MRI:Mild increased signal within the distal right gluteus medius and minimus and the proximal right hamstring. The findings suggest tendinosis with mild partial-thickness tears. -- Start Zanaflex 2 mg p.o. 3 times daily, Lidoderm patch, Tylenol 1 g every 8 hours on admission --Consulted orthopedic spine, pain management - started on Solumedrol and baclofen (instead of zanaflex) --PT and OT evaluation 2. History of sleep apnea: CPAP at bedtime. 3. History of hypertension: Continue lisinopril. 4. Bronchitis: Will finish the course of azithromycin. 5. Hyperlipidemia: On statin. 6. Depression with anxiety: On Zoloft. 7. Gastroesophageal reflux disease: On omeprazole. 8. History of cancer determined by prostate biopsy, but seems the patient is not on any treatment, needs followup. DVT prophylaxis: Lovenox. DISPOSITION: Lives at home/ PT and OT evaluation Admission and Anticipated Discharge Date Admission Date: November 19, 2022 Subjective Follow-up persistent right lower back pain, etc. Seen resting in bed, not in distress Reports feeling better, was able to walk w/ walker No fever, chills, chest pain, shortness of breath Seen by ortho and pain management - started on solumedrol and baclofen, pt reports feeling better Review of Systems Review of Systems: All systems reviewed & are unremarkable except as noted in Subjective Physical Exam Physical Exam: General- oriented x 3, not in distress, speaks in sentences with no effort or accessory muscle use Head- atraumatic Eyes- PERRL, EOMI, anicteric ENT- oropharynx clear Neck- supple Lungs- clear to auscultation bilaterally, no rales/wheezes Heart- normal rate, regular rhythm; no murmur Abdomen- normal bowel sounds, nondistended, soft, nontender Extremities- no pretibial edema, no calf tenderness; peripheral pulses intact Back- (+) tenderness on the R lower back (improved) No erythema/warmth/tenderness Neuro- alert, oriented x 3; no facial asymmetry, speech fluent, sensation 100% on all extremities; moves extremities Skin- warm & dry Results & Data Results & Data Vital Signs (Past 12 Hours) Vital Signs Temp Pulse Resp BP Pulse Ox O2 Del Method 11/20/22 15:33 36.9 C 65 16 131/71 95 Room Air 11/20/22 09:15 Room Air 11/20/22 08:23 67 118/74 11/20/22 07:40 36.5 C 53 L 16 98/61 L 97 Room Air Medications Administered Current Inpatient Medications Acetaminophen (Acetaminophen 325 Mg Tab) 650 mg PO Q4H PRN PRN Reason: pain/fever Stop: 12/19/22 02:35 Last Admin: 11/19/22 16:10 Dose: 650 mg Acetaminophen (Acetaminophen 500 Mg Tab) 1,000 mg PO Q8H [facility] Stop: 12/19/22 17:59 Last Admin: 11/20/22 09:48 Dose: 1,000 mg Aspirin (Aspirin 81 Mg Ectab) 81 mg PO HS [facility] Stop: 12/19/22 20:59 Last Admin: 11/19/22 20:20 Dose: 81 mg Azithromycin (Azithromycin 250 Mg Tab) 250 mg PO DAILY [facility] Stop: 11/21/22 08:59 Last Admin: 11/20/22 08:27 Dose: 250 mg Baclofen (Baclofen 10 Mg Tab) 10 mg PO BID [facility] Stop: 12/20/22 09:44 Last Admin: 11/20/22 11:30 Dose: 10 mg Benzonatate (Benzonatate 100 Mg Capsule) 100 mg PO TID PRN PRN Reason: cough Stop: 12/19/22 02:35 Enoxaparin Sodium (Enoxaparin Inj 40 Mg/0.4 Ml Syr) 40 mg SQ QAM [facility] Stop: 12/19/22 08:59 Last Admin: 11/20/22 09:48 Dose: 40 mg Hydromorphone HCl (Hydromorphone Inj 0.5 Mg/0.5 Ml Syr) 0.5 mg IV Q4H PRN PRN Reason: Severe Pain (Scale 7, 8, 9,10) Stop: 12/03/22 02:35 Lidocaine (Lidocaine 5% 1 Patch) 1 patch TD QAM [facility] Stop: 12/20/22 08:59 Last Admin: 11/20/22 08:28 Dose: 1 patch Lisinopril (Lisinopril 10 Mg Tab) 10 mg PO QAM [facility] Stop: 12/19/22 08:59 Last Admin: 11/20/22 08:27 Dose: 10 mg Methylprednisolone (Methylprednisolone 4 Mg Tab) 24 mg PO DAILY [facility]; Taper Stop: 12/08/22 09:44 Last Admin: 11/20/22 11:30 Dose: 24 mg Miscellaneous (Remove Lidoderm Patch) 1 each N/A DAILY@2100 [facility] Stop: 12/19/22 20:59 Last Admin: 11/19/22 22:37 Dose: Not Given Oxycodone HCl (Oxycodone Hcl Ir 5 Mg Tab (Immediate Release)) 5 mg PO Q8H PRN PRN Reason: pain (scale score 7-10) Stop: 12/03/22 02:35 Pantoprazole Sodium (Pantoprazole 40 Mg Tab) 40 mg PO DAILY [facility] Stop: 12/19/22 08:59 Last Admin: 11/20/22 08:27 Dose: 40 mg Sertraline HCl (Sertraline Hcl 50 Mg Tablet) 150 mg PO DAILY [facility] Stop: 12/19/22 08:59 Last Admin: 11/20/22 08:27 Dose: 150 mg Simvastatin (Simvastatin 20 Mg Tab) 20 mg PO HS [facility] Stop: 12/19/22 20:59 Last Admin: 11/19/22 20:20 Dose: 20 mg
[2022-11-20] MEDS: SIMVASTATIN 20 MG TAB PO SCH (20:15)
[2022-11-20] MEDS: ASPIRIN 81 MG ECTAB PO SCH (20:15)
[2022-11-21] MEDS: ACETAMINOPHEN 500 MG TAB PO SCH ×3 (02:56→17:52)
[2022-11-21] MEDS: BACLOFEN 10 MG TAB PO SCH (07:31)
[2022-11-21] MEDS: ENOXAPARIN INJ 40 MG/0.4 ML SYR SQ SCH (08:46)
[2022-11-21] MEDS: LIDOCAINE 5% 1 PATCH TD SCH (08:46)
[2022-11-21] MEDS: SERTRALINE HCL 50 MG TABLET PO SCH (08:46)
[2022-11-21] MEDS: PANTOprazole 40 MG TAB PO SCH (08:46)
[2022-11-21] MEDS: methylPREDNISolone 4 MG TAB PO SCH (08:46)
[2022-11-21] MEDS: lisinopril 10 MG TAB PO SCH (08:46)
--- NOTE | 2022-11-21 09:04 | Pain Management Progress Note ---
Date of Service November 21, 2022 Assessment & Plan (1) Acute right flank pain: (2) Spinal stenosis of lumbar region: (3) Sympathetic pain: Plan Patient still has not been taking the PRN oxycodone or Dilaudid. He is regularly taking Tylenol, and now the Medrol and baclofen. Thoracic MRI, per my own for review, demonstrates bulging/herniated discs and thoracolumbar anterior disc osteophyte complexes of a rather large appearing size. * These appear at T9-10, T11-12, and T12-L1. * Though this can be a common appearance on a thoracic MRI, research has suggested that possibly there is a component of sympathetic chain nerve compression involvement, wherein the lesser vs. least splanchnic nerve is being compressed/stretched and causing referred type pain in the kidney area due to renal plexus involvement. 1. Continue conservative treatment with oral Medrol taper. 2. Continue baclofen 10 mg twice daily. 3. Continue mobilization with PT/OT. 4. Educated patient that he should remain in the hospital until his pain is under control, and then we can follow-up in the outpatient setting at the pain clinic at the end of next week or the beginning of the following. * In the meantime, pain team will continue to have discussion on the potential for a diagnostic lesser vs. least splanchnic nerve block vs. alternative, pending patient's response to the oral steroid and muscle relaxer. 5. Pain management team will sign off at this time; please reconsult if needed. Admission and Anticipated Discharge Date Admission Date: November 19, 2022 Subjective Patient reports continued pain in his right flank. He notices the pain when he tries to ambulate with therapy, which she was able to do yesterday with OT and PT. He feels that his pain is possibly slightly improved over yesterday. He continues to localize the pain in the right flank, which is mostly with movement and direct palpation. He still feels most comfortable lying on his left side. Patient denies any new symptoms. Pain Assessment Pain Assessment Full Body Front + Back: 1. Physical Exam Physical Exam: GENERAL: Speech and cognition is intact. Mood and affect is appropriate. Does not appear in acute distress. Appears comfortable lying in bed on left side. HEAD: Normocephalic; atraumatic. NECK: Full ROM; trachea is midline. CHEST: Regular chest respiration and excursion. EXTREMITIES: Full ROM. No TTP. Distal sensation and pulses intact bilaterally. BACK: Positive mild to moderate point tender over right flank retrorenally at the posterior costal margin. NEURO: CN II-XII grossly intact with no focal deficits noted. Awake, alert, and oriented x 3. Distal sensation of lower legs intact and equal bilaterally. SKIN: No lesions, erythema, or rashes noted. Results (Pain Clinic) Diagnostic Review MRI Findings: Abdomen/Pelvis CT 11/18/22 16:12 CT OF THE ABDOMEN AND PELVIS WITH CONTRAST CLINICAL HISTORY: Right lower quadrant abdominal pain. COMPARISON STUDY: CT of the abdomen and pelvis November 15, 2022. TECHNIQUE: Following IV administration of 88 mL of Optiray, axial images of the abdomen and pelvis were obtained from the lung bases to the proximal femurs. Images were reviewed in the axial, sagittal, and coronal planes. IV contrast was administered without complication. Automated exposure control was utilized for the study. A dose lowering technique was utilized adhering to the principles of ALARA. CT DOSE: 1010.58 mGy.cm FINDINGS: No pneumatosis, free air or portal venous gas is present. There is no biliary ductal dilatation status post cholecystectomy. Liver, spleen, adrenal glands, kidneys and pancreas are unremarkable. There are numerous subcentimeter renal lesions which are too small to characterize. No hydronephrosis is present. The appendix is normal. There is no evidence for a bowel obstruction. The caliber and wall thickness of small and large bowel are normal. Mild stranding within the pelvis, adjacent to the prostate and seminal vesicles is unchanged. No fluid collection is present. The no lymphadenopathy. No suspicious osseous lesions are present. No urinary calculi. IMPRESSION: 1. No acute process within the abdomen or pelvis. 2. Normal appendix. No bowel obstruction. No bowel wall thickening. ACT 112: Negative or not required by law. Electronically signed by: Nickolas Mcgee M.D. 11/18/2022 5:20 PM Lumbar Spine MRI 11/19/22 07:43 LUMBAR SPINE MRI HISTORY: persistent R lower back pain TECHNIQUE: Multiplanar multisequence MRI of the lumbar spine was performed without the use of contrast. COMPARISON: Abdomen and pelvis CT 11/18/2022. FINDINGS: For the purpose of the report the L5-S1 disc space will be located on axial image 25 of 27. There is 3 mm of anterolisthesis of L4 on L5. No acute fractures identified within the lumbar spine. The visualized sacrum is intact. Slightly heterogeneous marrow signal which is likely age-related. No suspicious osseous lesions identified. Mild right-sided paravertebral edema at the T12-L1 level which is likely due to the adjacent large osteophyte. Multiple additional osteophytes seen within the lumbar spine. Moderate to severe facet degenerative changes thr oughout the lumbar spine most pronounced at the L3-L4 and L4-5 levels. Moderate disc space narrowing at L4-L5. There is mild disc space narrowing throughout the remaining lower thoracic and lumbar spine. The conus terminates at the L1 level. L1-L2: Broad-based posterior disc bulge with a small focal central disc protrusion measuring 2 mm. There is also ligamentum flavum and facet hypertrophy resulting in mild central canal and mild bilateral neural foraminal narrowing. L2-L3: Broad-based posterior disc bulge with significant ligamentum flavum and facet hypertrophy resulting in moderate to severe central canal narrowing with the AP diameter measuring 7 mm. There is mild to moderate bilateral neural foraminal narrowing. L3-L4: Broad-based posterior disc bulge with severe ligamentum and facet hypertrophy resulting in severe central canal narrowing with the AP diameter measuring 5.3 mm. There is also severe right and moderate to severe left neural foraminal narrowing due to the disc bulge and facet hypertrophy. L4-L5: Broad-based posterior disc bulge with severe ligamentum and facet hypertrophy resulting in severe central canal narrowing with the AP diameter of 3 mm. There is also moderate to severe left and severe right neural foraminal narrowing. L5-S1: Broad-based posterior disc bulge with a small central focal disc protrusion. This abuts the transiting bilateral S1 nerve roots. However, no significant central canal narrowing. There is severe bilateral neural foraminal narrowing with impingement of the exiting bilateral L5 nerve roots. IMPRESSION: 1. Advanced multilevel degenerative changes as described above most pronounced at the L3-L4 and L4-L5 levels demonstrating severe central canal narrowing. 2. No fractures identified. 3. Grade 1 anterolisthesis of L4 and L5. ACT 112: Negative or not required by law. Electronically signed by: Mark Haddad M.D. 11/19/2022 11:04 AM Thoracic Spine MRI 11/19/22 07:43 MR thoracic spine wo con CLINICAL HISTORY: persistent R flank pain TECHNIQUE: Multiplanar sequences through the thoracic spine were obtained, without intravenous contrast. Comparison: None available at the time of this dictation. FINDINGS: The alignment is anatomical. Degenerative changes are noted in the discs and vertebral bodies. The spinal canal and neural foramina are patent. The spinal ligaments are intact, without evidence of disruption or abnormal signal intensity. The spinal cord is normal in signal intensity and there is no evidence of cord contusion. There is no evidence of an extradural, intradural, extramedullary or intramedullary lesion. Visualized soft tissues are normal. IMPRESSION: No evidence of cord compression, significant neuroforaminal narrowing or ligamentous injury. ACT 112: Negative or not required by law. Electronically signed by: Nikos Shanks M.D. 11/19/2022 10:50 AM Hip MRI 11/19/22 07:44 MRI OF THE RIGHT HIP WITHOUT CONTRAST CLINICAL HISTORY: Persistent right hip pain. COMPARISON STUDY: CT of the abdomen and pelvis November 18, 2022. TECHNIQUE: Utilizing a 1.5 Puja magnet and dedicated coil, multiplanar, multiecho imaging of the right hip was performed without intra-articular or intravenous contrast. FINDINGS: No marrow edema or marrow replacement is identified within the pelvis or hips. No right hip joint effusion is present. There is no evidence for avascular necrosis of the femoral heads. No significant cartilage abnormality within the right hip is present. No labral tear is identified on nonarthrogram exam. There are moderate degenerative changes at the symphysis pubis. No kayleen picious osseous lesions are present. There is no pelvic lymphadenopathy. Note is made of mild increased signal within the distal right gluteus minimus and medius. There is also mild increased signal within the right hamstring origin. There is subtle increased T2 signal within the pelvic floor musculature. No fluid collection is present. IMPRESSION: 1. No fractures within the pelvis or hips. No suspicious marrow replacement. No evidence for avascular necrosis of the femoral heads. 2. No significant internal derangement of the right hip on nonarthrogram exam. 3. Mild increased signal within the distal right gluteus medius and minimus and the proximal right hamstring. The findings suggest tendinosis with mild partial- thickness tears. 4. Increased T2 signal within the pelvic floor musculature. This is likely treatment related. ACT 112: Negative or not required by law. Electronically signed by: Nickolas Mcgee M.D. 11/19/2022 11:17 AM
--- NOTE | 2022-11-21 17:23 | Discharge Summary ---
Discharge Summary Date of Service November 21, 2022 Notes For Next Care Provider Admitted with back pain, conservative management recommended by orthopedic surgery and pain management. Improved with medrol dosepak, baclofen BID, follow- up with pain management in next 10 days Medication Changes From Visit Medrol dosepak, baclofen 10mg BID, PRN tylenol Admission HPI Per Admitting Provider A 67-year-old male with past medical history significant for hyperlipidemia, sleep apnea, hypertension, bifascicular block, GERD, history of prostate cancer, degenerative disk disease, depression with anxiety, history of carcinoma in situ of colon. Presents with severe right back and flank pain. The patient was here on 11/15/2022 with coughing and right back pain. At that time, workup was negative, was discharged on possible questionable bronchitis with azithromycin. On that day, on 11/15/2022, imaging, CT abdomen and pelvis was done without contrast to look for any kidney stone, it was unremarkable, but the patient states that his symptoms are not getting better. That is the reason he came here .Cough is little better and pain is shooting down and looks like he denied any saddle anesthesia, bowel or bladder incontinence. Locates the pain to the right flank and the hip region. Could not get up because of excruciating pain. That is the reason we were called for admission. Currently, resting comfortably and hemodynamically stable and lying down, his pain is okay. Denies any chest pain, no shortness of breath. Vera nausea because of pain. Denies any fevers. Cough is getting better, no shortness of breath, no headache, no blurred visions, no earache. Has some sore throat, but that got improved. Eating okay and no abdominal pain. Normal bowel and bladder movements. Admission Exam Per Admitting Provider GENERAL: The patient is obese, not in acute distress. VITAL SIGNS: Temperature 36.7, pulse 63, respiratory rate 16, blood pressure 121/72, oxygen 94% on room air. HEENT: Pupils equal, round and reactive to light. Oral mucosa moist. NECK: No JVD, no neck masses. CARDIOVASCULAR: S1 and S2 heard. Regular rate and rhythm. No murmur, no gallop. RESPIRATORY SYSTEM: Normal AP diameter. No accessory muscle use. No wheezing or crackles. ABDOMEN: Soft, bowel sounds present, nontender, no distention. CENTRAL NERVOUS SYSTEM: Alert and oriented. Speech is clear. No facial droop. Obeys commands. MUSCULOSKELETAL: Tenderness in the right flank and hip region, the right posterior lower back and hip region. EXTREMITIES: No edema or erythema. Principal Dx & Hospital Course #1 = Principal Diagnosis (1) Intractable back pain: Plan This is a 67-year-old male who presents with severe right flank/back pain. No acute process on CT abdomen pelvis. Thoracic MRI was unrevealing, lumbar spine MRI with severe spinal stenosis. Right hip MRI:Mild increased signal within the distal right gluteus medius and minimus and the proximal right hamstring. The findings suggest tendinosis with mild partial-thickness tears. Location of pain did not correlate with findings on MRI per orthopedic surgery and pain management evaluations. Both recommend conservative management with Medrol Dosepak and baclofen. Has been utilizing as needed Tylenol and has not needed oxycodone, so that has been discontinued. Patient was instructed to follow-up in pain management clinic within the next 10 days for possible nerve block and reevaluation. Completed azithromycin course for bronchitis during admission. Patient is comfortable and ambulating independently at time of discharge. Hemoglobin stable and return home. Discharge Exam Gen: WD/WN, NAD, sitting in bedside chair, A&Ox3 HEENT: Normocephalic, atraumatic, conjunctivae moist, sclerae anicteric, mucous membranes moist Lung: Clear to Auscultation bilaterally, no wheezes/rales/rhonchi Heart: Regular rate, regular rhythm, no murmurs, rubs, or gallops Abdomen: Soft, NT, ND +BS x 4 Extremities: R flank/back pain with TTP, no edema, moving spontaneously Skin: Warm, no rash Updated Medication List Medication Instructions Recorded Confirmed Type lisinopril 10 mg tablet 10 mg PO QAM 01/01/19 11/18/22 History omega 3 350 mg-dha 235 mg-epa 90 1 cap PO HS 01/01/19 11/18/22 History mg-fish oil 597 mg capsule,delay rel ([place]-3) sertraline 100 mg tablet 150 mg PO DAILY 01/01/19 11/18/22 History simvastatin 20 mg tablet 20 mg PO HS 01/01/19 11/18/22 History omeprazole 20 mg capsule,delayed 20 mg PO DAILY 09/07/20 11/18/22 History release aspirin 81 mg chewable tablet 81 mg PO HS 11/15/22 11/18/22 History benzonatate 100 mg capsule 100 mg PO TID PRN cough #15 caps 11/15/22 11/18/22 Rx baclofen 10 mg tablet 10 mg PO BID #20 tabs 11/21/22 Rx methylprednisolone 4 mg tablets in 4 mg PO DAILY #21 ea 11/21/22 Rx a dose pack (Methylpred DP) Hospital Stay Data Consultations 11/18/22 20:33 ED Decision to Admit Stat 11/19/22 17:12 Consult Orthopedic Surgery Routine Consult Pain Management Routine Diagnostic Imagining Performed 11/18/22 16:12 CT abd pelvis IV con only Stat 11/19/22 07:43 MRI Lumbar Spine [MR lumbar spine wo con] Routine MRI Thoracic [MR thoracic spine wo con] Routine 11/19/22 07:44 MRI Hip [MR hip RT wo con] Routine Pending Results Patient Have Any Pending Studies at Discharge: No Discharge Instructions Given to Patient (Per Discharging Provider) MEDICATION CHANGES: Complete 6 day steroid taper with Medrol Dosepak (instructions on pack) Continue Baclofen 10mg twice a day Continue using Tylenol as needed. SUMMARY OF TEST RESULTS: You were admitted with right back/flank pain. Thoracic MRI, per my own for review, demonstrates bulging/herniated discs and thoracolumbar anterior disc osteophyte complexes of a rather large appearing size. Per orthopedic surgery and pain management R back pain should be managed conservatively with a steroid dosepak and baclofen twice daily as well as tylenol as needed. Please follow up with pain management in clinic in the next 10 days for possible nerve block if needed. PENDING TEST RESULTS: None RECOMMENDATIONS FOR FOLLOW-UP: Follow up with PCP as scheduled and pain management as above. Please use caution and avoid driving/operating machinery/drinking alcohol while taking baclofen as it can cause dizziness and drowsiness. Continue medication regimen as scheduled aside from changes noted above. OTHER INSTRUCTIONS: Seek medical attention if you have: * temperature above 101 * chest pain or trouble breathing * abdominal pain, nausea, vomiting * diarrhea, dark stools or bloody stools * any unanswered questions or concerns Call 911 if symptoms are severe. Please take good care of yourself. Call if you have any questions or problems. You can reach a [facility] hospitalist on duty at [facility] 24 hours a day by calling [phone]. Total Time Total Time Spent Total Time Spent (In Minutes): 60 Supervising Physician Co-Signing Physician Notes Pt seen and examined by me, care coordinated with Candi Paul PA-C, please refer to her note above for further detail. Patient admitted for back pain, seen by orthopedic surgery, and pain management. Currently resting in no acute distress, reports feeling much better, worked with physical therapy. Per pain management and orthopedic surgery evaluation, recommend medical management, patient was started on Solu-Medrol yesterday, and baclofen. He is also utilizing Tylenol. He is not utilizing any as needed oxycodone. He is awake alert oriented answering simple questions appropriately, heart sounds regular, lung sounds clear to auscultation, abdomen soft nontender nondistended. Patient moves extremities. PCP follow-up arranged, patient is also supposed to follow-up with pain management, patient was provided with their address. MD [place]
== END 2022-11-21 18:30 | disposition home or self-care (01) ==
LOC: ED 14:00 → EDINP 14:00 → 3E 11-19 02:36 → SUATTDRO 11-19 18:07